=== PATIENT | female | born 1955 | race Caucasian/White ===

== ENCOUNTER 2025-02-18 13:31 | Outpatient (AMB) | payer MEDICARE, OTHER, SELFPAY ==
--- OUTSIDE RECORDS SUMMARY | 2025-02-18 15:57 | XMS_ITS ---
Author Name [facility] Organization Unknown Care Team Organization Name Specialty Phone Email Start Date End Da te [facility] ACO 01/14/2025 [facility] Akin Aponte Primary Care 02/01/20232023 [facility] Yoanna Paris Primary Care 08/02/202212/26 [facility] Lesli Cristina Primary Care 04/04/2022
--- OUTSIDE RECORDS SUMMARY | 2025-02-18 15:57 | XMS_ITS | Clinical Summary ---
Author Organization [facility] Address [address] [place] [address] Care Team Providers Care Internal Medicine Physician Assistant Name Role Phone Lesli Cristina Primary Care Provider Medications Medication Sig Dispensed Refills Start Date End Date Status alendronate (FOSAMAX) tablet 70 mg TAKE 1 TABLET BY MOUTH EVERY 7 DAYS FOR 360 DAYS. 0 01/20/2021 Active amLODIPine (NORVASC) tablet 5 mg Take 5 mg by mouth 2 (two) times a day. 0 02/04/2021 Active furosemide (LASIX) 20 MG tablet TAKE 1 TABLET BY MOUTH DAILY FOR 4 DAYS. 0 01/14/2021 Active levothyroxine (SYNTHROID) tablet 75 mcg Take 75 mcg by mouth daily. 0 02/09/2021 Active losartan (COZAAR) tablet 50 mg Take 50 mg by mouth 2 (two) times a day. 0 02/15/2021 Active Active Problems No known active problems Social History Tobacco Use Types Packs/Day Years Used Date Smoking Tobacco: Former Smokeless Tobacco: Never Alcohol Use Standard Drinks/Week Comments Yes 0 (1 standard drink = 0.6 oz pur e alcohol) Social Sex and Gender Information Value Date Recorded Sex Assigned at Not on file Gender Identity Not on file Sexual Orientation Not on file Last Filed Vital Signs Vital Sign Reading Time Taken Comments Blood Pressure 148/63 02/28/2021 2:58 PM EDT Pulse 77 02/28/2021 2:58 PM EDT Temperature 36.4 C (97.6 F) 02/28/2021 2:58 PM EDT Respiratory Rate - - Oxygen Saturation 98% 02/28/2021 2:58 PM EDT Inhaled Oxygen Concentration - - Weight 113.4 kg (250 lb) 02/28/2021 2:58 PM EDT Height 172.7 cm (5' 8 ) 02/28/2021 2:58 PM EDT Body Mass Index 38.01 02/28/2021 2:58 PM EDT Plan of Treatment Health Maintenance Due Date Last Done Comments Hepatitis C Screening 1954 COVID-19 Vaccine (#1) 1954 Depression Screening 1966 Preventative Health Evaluation 1972 DTap / Tdap / Td (1 - Tdap) 1973 Colon Cancer Screening (Colonoscopy) 1999 Breast Cancer Screening (Mammogram) 2004 Shingrix-Zoster Vaccine (1 of 2) 2004 Fall Risk Assessment 2019 Osteoporosis Screening (DEXA Scan) 2019 Pneumococcal Vaccine (1 of 1 - PCV) 2019 Influenza Vaccine (#1) 2025 RSV Adult > 60+ Yrs or Pregn ant (1 - 1-dose 75+ series) 2029 Hepatitis B Vaccines Aged Out No long er eligible based on patient's age to complete this topic RSV Ped < 20 months Aged Out No longe r eligible based on patient's age to complete this topic Care Teams Internal Medicine Physician Assistant Relationship Specialty Start Date End Date IbethYvonne cunninghamcheryl Mcguire [address] [place] [address] PCP - General Internal Medicine 02/09/21
== END 2025-02-18 13:32 | disposition home or self-care (01) ==
PROVIDERS: PCP Internal Medicine; Visit Provider Registered Nurse Emergency
DX: J30.89 Other allergic rhinitis (principal)
CPT/HCPCS: 95117; 95165

== ENCOUNTER 2025-03-30 16:00 | Outpatient (AMB) | payer MEDICARE, OTHER, SELFPAY ==
--- OUTSIDE RECORDS SUMMARY | 2025-03-30 17:04 | XMS_ITS | Data Portability ---
Author Organization [place] - Karl Ivory Denadya [facility], [facility] Address [address] [place] [address] Assessment No assessment recorded. Plan of Treatment Reminders Order Date Submit Date Provider Last Modified By Organization Details Last Modified Time Details Appointments RECHECK 15 2025 09:45A M Alfonso Valenzuela PA-C Not available Not available Not available Lab None recorded . Referral None recorded . Procedures None recorded . Surgeries None recorded . Imaging XR, hip + pelvis, unilater al, 2 or 3 view - rm 208. 2V annual RTHR AB 2023 024 [facility] [facility], [address], [place], [address], 01/19/2024 09:09:42 Medication Orders None recorded . Patient TargetsNo targets recorded. Patient InstructionsNo instructions recorded. Reason for Referral None Reported. Results Created Date Observation Date Name Description Value Unit Range Abnormal Flag Note LastModifiedBy Organization Detail LastModifiedTime 01/18/2001/18/2024 XR, hip + pelvi s, unila teral , 2 or 3 view http:/ [email or web address] ?Encry pted=s hAaTro YD8dLq bEUv6g %2BXZw aYqtaq 0bqfl% 2Fg9IQ a4ajBk vP9nXo QUaueC m3YtLR FvZlgJ JJ8mAn HZtai3 1w2912 AC0Kra HWMVKr eUC8mr 84%3D INTERFACE [facility] [address], [place], [address], 01/18/2024 08:56:56 01/18/20 24 01/18/2024 XR, hip + pelvi s, unila teral , 2 or 3 view http:/ [email or web address] ?Encry pted=s hAaTro YD8dLq bEUv6g %2BXZw aYqtaq 0bqfl% 2Fg9IQ a4ajBk vP9nXo QUaueC m3YtLR FvZlgJ JJ8mAn HZtai3 7v1367 AC0Kra HWMVKr eUC8mr 84%3D INTERFACE [facility] [address], [place], [address], 01/18/2024 08:56:57 01/26/20 24 09/03/2020 imagi ng/di agnos tic resul t No observ ation record ed. [email or web address] Not Available 12/28 04:30:52 Result Notes Documentation Provider Name and Address Organization Details Recorded Time Xr, Hip + Pelvis, Unilateral, 2 Or 3 View : [email or web address]? Encrypted=ttEqRgfCU3qWqpK Uv6g%5YUYlkDkmva2nlis%2Fg 3FLu3nfPnoG3oMpZTislTm5Rg IQXdScfLLP4zYdHJeyb72s624 3RF5OlzVRYOSjbSU9vt17%3D Not Available [facility] 01/18/2024 08:5 6:57 Xr, Hip + Pelvis, Unilateral, 2 Or 3 View : [email or web address] Encrypted=cjKqPwaYG9tNwrO Uv6g%3YFFfmOfygb9bkcr%2Fg 8IHb6cbQeyZ5eQkBNrvcVq0Ms ZNHgFalDKY4eUoVOpzk02n887 1NY3MegDJRUIcgTW3im81%3D Not Available [facility] 01/18/2024 08:5 6:58 Problems Name Problem SNOMED Code Status Onset Date Resolution Date Notes Provider Name and Address Organization Details Recorded Time Tear of medial meniscus of knee 245064112 Active 2015 Problem Code: S83.231A ; Problem Code Type: ICD-10; Status: 'A'; Not Available [facility] 4 12:12:25 Problem Notes None recorded. Procedures Surgical History Date Name Laterality Status Provider Name and Address Organization Details Recorded Time 5 Sports Shoulder 4&1 completed Alfonso Valenzuela PA-C [address], [place], [address], [facility] 11/19/2024 12:14:29 5 Knee Kenalog 40 1cc Injection, Bilateral completed Alfonso Valenzuela PA-C [address], [place], [address], [facility] 11/19/2024 12:14:35 5 Shoulder Kenalog 2cc Injection, Bilateral completed Alfonso Valenzuela PA-C [address], [place], [address], [facility] 08/04/2024 12:34:58 4 Other completed ALYSSA DENNISE [facility] 11/19/2024 08:52:10 4 Other completed ALYSSA DENNISE [facility] 11/19/2024 08:52:10 3 Hip Surgery completed ALYSSA GASTON [facility] 11/19/2024 08:52:10 6 Knee Surgery completed ALYSSABRY RASCONIERJennifer [facility] 11/19/2024 08:52:10 Spine Surgery completed ALYSSABRY RASCONIERJennifer [facility] 11/19/2024 08:52:10 Knee Surgery completed ALYSSA MARILIN [facility] 11/19/2024 08:52:10 Shoulder Surgery completed ALYSSABRY GASTON [facility] 11/19/2024 08:52:10 Ankle/Foot Surgery completed ALYSSABRY GASTON [facility] 11/19/2024 08:52:10 Imaging Results None recorded. Procedure Notes None recorded. Medical Equipment None Reported. Allergies Allergen ID Allergen Name Allergen Category Reaction Reaction Severity Criticality Documentation Date Start Date Code Code System Note Provider Name and Address Organization Details Recorded Time 557035 fluoxetin e medicatio n Not available Not available Not available 08/04/2024 4493 RxNorm ALYSSA GASTON elvia [facility] 5 10:11:14 02188 Augmentin medicatio n Not available Not available Not available 07/30/20232013 30950 2 RxNorm Aller gyRea ction : 'Skin React ion'; Not Available [facility] 12:08:53 Medications Name Sig Start Date Stop Date Status Note LastModified by Organization Details LastModified Time losartan 50 mg tablet TAKE 1 TABLET BY MOUTH TWICE A DAY active Not Available Not Available No t Available amoxicillin 500 mg capsule TAKE 4 ONE HOUR BEFORE APPOINTME NT active Not Available Not Available No t Available gabapentin 600 mg tablet TAKE 1 TABLET BY MOUTH EVERYDAY AT BEDTIME active Not Available Not Available No t Available doxycycline hyclate 100 mg capsule TAKE 1 CAPSULE BY MOUTH TWICE A DAY FOR 7 DAYS active Not Available Not Available No t Available azithromyci n 250 mg tablet TAKE 2 TABLETS BY MOUTH TODAY, THEN TAKE 1 TABLET DAILY FOR 4 DAYS DIRECTED 07/29 completed Not Available Not Available Not Available ibuprofen 800 mg tablet TAKE 1 TABLET BY MOUTH EVERY 8 HOURS NEEDED FOR PAIN active Not Available Not Available No t Available prednisone 20 mg tablet TAKE 2 TABLETS (40 MG TOTAL) BY MOUTH ONE TIME EACH DAY FOR 5 DAYS. active Not Available Not Available No t Available alendronate 70 mg tablet TAKE 1 TABLET BY MOUTH ONE TIME PER WEEK active Not Available Not Available No t Available amlodipine 5 mg tablet TAKE 1 TABLET BY MOUTH TWICE A DAY active Not Available Not Available No t Available levothyroxi ne 75 mcg tablet TAKE 1 TABLET BY MOUTH EVERY DAY active Not Available Not Available No t Available ketorolac 0.5 % eye drops INSTILL 1 DROP IN OPERATIVE EYE TWICE A DAY. START 2 DAYS PRIOR TO SURGERY 07/29 completed Not Available Not Available Not Available benzonatate 100 mg capsule TAKE 1 CAPSULE BY MOUTH 3 TIMES A DAY IF NEEDED FOR COUGH. DO NOT CRUSH OR CHEW. 07/29 completed Not Available Not Available Not Available pseudoephed rine-guaife nesin ER 80-700 mg tablet,exte nded release DO NOT DRIVE WHILE TAKING THIS MEDICATIO N 09/14 completed Statu s: 'Disc ontin ued'; Not Available Not Available Not Available prednisone 50 mg tablet TAKE 1 TABLET BY MOUTH EVERY DAY FOR 5 DAYS 07/29 completed Not Available Not Available Not Available albuterol sulfate HFA 90 mcg/actuati on aerosol inhaler TAKE 1 PUFF EVERY 4 TO 6 HOURS FOR SHORTNESS OF BREATH OR WHEEZING active Not Available Not Available No t Available naproxen 500 mg tablet TAKE 1 TABLET BY MOUTH 2 TIMES DAILY (WITH MEALS) FOR 10 DAYS. active Not Available Not Available No t Available acetaminoph en Acetamino phen 325MG Capsule 2021 active Statu s: 'Curr ent'; Not Available Not Available Not Available oxycodone HCl-oxycodo ne-ASA 1 every 4 - 6 hours as needed DO NOT DRIVE WHILE ON THIS MEDICATIO N 09/14 completed Statu s: 'Disc ontin ued'; Not Available Not Available Not Available Vitals Date Recorded Body height Body mass index (BMI) Body weight Provider Name and Address Organization Details Last Updated DateTime 08/04/2024 170.18 cm 39.9 kg/m2 633031.05 g ALYSSA GASTON [facility] 08/04/2024 10:10:47 Date Recorded Body height Provider Name an d Address Organization Details Last Updated DateTime 11/19/2024 170.18 cm ALYSSA GASTON [facility] 11/19/2024 08:51:46 Date Recorded Body height Provider Name an d Address Organization Details Last Updated DateTime 01/18/2024 170.18 cm ALYSSA GASTON [facility] 01/18/2024 08:49:42 Social History Question Answer Notes LastModified by Organizat ion Details LastModified Time Tobacco Smoking Status Former Smoker ALYSSA gan [facility] 11/19/2024 08:52:04 When Did You Quit Smoking? 16+yearssinc elastcigaret te Information not available 11/19/2024 What Is Your Relationship Status? Information not available 11/19/2024 How Many Years Have You Smoked Tobacco? 8 Information not available 11/19/2024 Sex: Unknown Functional Status Question Answer Note LastModified by Organizat ion Details LastModified Time How many times per week do you consume alcohol? Less than 1 time per week Information not available 11/19/2024 Do you use any illicit or recreational drugs? No Information not available 11/19/2024 Do you or have you ever used any other forms of tobacco or nicotine? No Information not available 11/19/2024 Mental Status None recorded. Family History Nothing Reported. Medical History Condition Response Anxiety/Depression Y Arthritis Y Allergies/Hayfever Y Thyroid Problems Y Peripheral Vascular Disease Y Hypertension Y Osteoporosis Y Gynecological HistoryNo gynecological history recorded. Obstetrics History GPAL:G 0 P 0 0 0 0 Past Encounters Encounter ID Performer Location Encounter Start Date Encounter Closed Date Diagnosis/Indication Diagnosis SNOMED-CT Code Diagnosis ICD10 Code Diagnosis IMO Codes Diagnosis Note [id number] MANOJ Johnston [address] [place] [address] 01/18/2024 08:44:38 02/14/2024 14:28:41 History of total replacement of right hip joint 4024335920 20694 Z96.813 [id number] MANOJ Swanson [address] [place] [address] 08/04/2024 10:05:11 08/18/2024 14:14:23 Pain of right shoulder joint 9924334346 7070066 M25.511 991465 Pain of le ft shoulder joint 5868111123 2442829 M25.512 [id number] [place] [address] 11/19/2024 08:50:28 11/27/2024 12:27:23 Osteoarthritis of left knee joint 1173428525 66987 M17.12 0012131 Osteoarthr itis of right knee joint 9258463733 13125 M17.11 5296724 Pain of ri ght shoulder joint 5734249236 9849555 M25.511 135067 Health Concerns Section Related Observation LastModified by Organization Detai ls LastModified Time None Recorded Concern Status LastModified by Organization Details LastModified Time None Recorded Advance Directives Directive None Recorded Payers Insurance Date Sequence Insurance Name Policy Number Policy Flores Covered Member ID Flores Member ID Guarantor Name 11/27/2024 2 [facility] IN[facility] (MEDICARE SUPPLEMENT) [id number] 2 José Miguel Jennifer Kip [id number] Bea Shin 03/18/2025 1 MEDICARE B-[place]: [facility] [employer] Beaynes Shin [id number] 1 Bea Shin Notes Date Note Type Note Provider Name and Address Organization Details Recorded Time 01/18/2024 text/html I am seeing the patient today under the supervision of Dr. Oglesby who was available but who did not see the patient. HPI: Patient comes in for evaluation of right hip There are status post left total hip arthroplasty [place] [address] Newman. Patient doing very well in this regard. Has no pain or complaints about the hip. Has gone back to activities of daily living without difficulty. Has been compliant with prophylactic dental antibiotic use. Very happy with the results so far. Past family, medical, social history and review of systems has been reviewed, updated and is located in the patient s chart. Examination:The patient is well appearing and in no apparent distress. Alert and oriented x3. Gait is symmetric. Vital signs per intake sheet.Examination of the right hip has no effusion erythema or warmth. No point tenderness. Supple range of motion without pain. Negative Stinchfield and negative impingement negative straight leg raise. Calf soft and nontender. 5/5 strength with hip flexion and extension. X-rays ordered, obtained and reviewed at [facility] 2 viewes of the right hip demonstrate a total joint arthroplasty with good interfaces and alignment. No evidence of any lysis or loosening. No acute fractures appreciated. Impression: Status post right total hip arthroplasty doing well Plan: Nature of diagnosis discussed with the patient today. Prophylactic dental antibiotic use. Any increased pain and discomfort about the hip should contact our office immediately. Otherwise can follow-up every 1-2 years for repeat radiographs, happily see her back sooner as noted above. José Miguel Esparza PA-C [address], [place], [address], [facility] 01/18/2024 09:20:28 08/04/2024 text/html I am seeing the patient today under the supervision of Dr. Damon who was available but who did not see the patient. Reason For VisitPatient comes to the office with know rotator cuff tendonitis. The patient has done well with conservative management for their bilateral shoulder pain. Has had increasing discomfort over the past several weeks without injury. Pain is generalized about the shoulder. Off and on discomfort is noted at night. Past Medical/Surgical HistoryCurrent medications per intake sheet. Physical Findings The patient is well appearing, in no apparent distress, alert and oriented to person, place and time. Gait is symmetric. No significant swelling, warmth or erythema about either shoulder. There is mild tenderness to palpation about the shoulder. Active range of motion of the shoulder is near full with mild to moderate pain through mid range manipulations. 4/5 strength of the shoulder, but the rotator cuff seems to fire well. Good stability of the shoulder. Peripheral, vascular, lymphatic examination, skin, neurologic coordination, reflexes, sensation are within normal limits. AssessmentRotator cuff tendonitis of the bilateral shoulder. planThe patient has done well with conservative management in regards to the right shoulder. Continued conservative management recommended. Moderating activities with the upper extremity recommended also. Injection was performed into the subacromial space. Injected 80mg of Kenalog and 8cc of 1/4% Marcaine under sterile conditions into the bilateral shoulder subacromial space. Patient tolerated the injection well. Moderating activities with the upper extremity recommended. The patient will follow up prn. Alfonso Valenzuela PA-C [address], [place], [address], [facility] 08/04/2024 12:35:25 11/19/2024 text/html I am seeing the patient today under the supervision of Dr. Damon who was available but who did not see the patient. Reason For Visit Patient comes to the office with know rotator cuff tendonitis. The patient has done well with conservative management for their right shoulder pain. Has had increasing discomfort over the past several weeks without injury. Pain is generalized about the shoulder. Off and on discomfort is noted at night. Past Medical/Surgical History Current medications per intake sheet. Physical Findings The patient is well appearing, in no apparent distress, alert and oriented to person, place and time. Gait is symmetric. No significant swelling, warmth or erythema about either shoulder. There is mild tenderness to palpation about the shoulder. Active range of motion of the shoulder is near full with mild to moderate pain through mid range manipulations. 4/5 strength of the shoulder, but the rotator cuff seems to fire well. Good stability of the shoulder. Peripheral, vascular, lymphatic examination, skin, neurologic coordination, reflexes, sensation are within normal limits. Assessment Rotator cuff tendonitis of the right shoulder. plan The patient has done well with conservative management in regards to the shoulder. Continued conservative management recommended. Moderating activities with the upper extremity recommended also. Injection was performed into the subacromial space. Injected 80mg of Kenalog and 8cc of 1/4% Marcaine under sterile conditions into the left shoulder subacromial space. Patient tolerated the injection well. Moderating activities with the upper extremity recommended. The patient will follow up prn. Problem 2 Chief Complaint The patient presents today for recheck of bilateral knee osteoarthritis. Is known to have knee arthritis treated conservatively to this point with 3 months relief of symptoms. Presents today for recheck secondary to increased knee pain. History of Present Illness Allergy list reviewed Medication list reviewed Past Medical/Surgical History Reviewed today, otherwise unchanged per intake sheet. Physical Findings General Appearance: Well developed. In no acute distress. Musculoskeletal System: Knee: General/bilateral: No laxity of the knee. Right Knee: Medial aspect was tender on palpation. No erythema. No warmth. Left Knee: Medial aspect was tender on palpation. No erythema. No warmth. Musculoskeletal Scales: General/bilateral: Mild effusion noted. Neurological: Oriented to time, place, and person. Gait And Stance: Normal. Psychiatric: Mood was appropriate to the affect. Left knee 0-120 degrees of flexion with discomfort. Right knee 0-120 degrees of flexion with discomfort. Assessment Osteoarthritis of knee -bilateral knees Plan More than 50% of todays visit was spent on direct patient counseling regarding their knee condition and treatment options both operative with knee arthroplasty and non-operative, including oral medications and injection therapy. After discussion, my clinical decision was to go forth with an intra-articular cortisone injection. After explaining risks and benefits, under meticulous aseptic technique, each knee was injected with, 1cc of Kenalog 40mgs and 4 cc of Marcaine 1/4%. They tolerated the procedures well. Post injection precautions reviewed. Follow up with us in 3 months for further discussion of total knee replacement surgery versus continued conservative treatment. Alfonso Valenzuela PA-C [address] [facility] [address], [place], [address], [place] [facility] 11/19/2024 12:15:07 OBGyn Episode No OBEpisode recorded.
--- OUTSIDE RECORDS SUMMARY | 2025-03-30 17:04 | XMS_ITS | Clinical Summary ---
Author Organization [facility] Address [address] [place] [address] Care Team Providers Care Logistics Program Manager Name Role Phone Lesli Cristina Primary Care [...] age to complete this topic Care Teams Logistics Program Manager Relationship Specialty Start Date End Date IbethYvonne cunninghamcheryl Mcguire [address] [place] [address] PCP - General Internal Medicine 02/09/21
--- OUTSIDE RECORDS SUMMARY | 2025-03-30 17:04 | XMS_ITS | Clinical Summary ---
Author Organization [facility] [address] [facility] Building Address [address] [place] [address] Phone Care Team Providers Care Director Of Student Financial Services Name Role Phone Akin Aponte MD Primary Care Provider [phone] Allergies Active Allergy Reactions Criticality Noted Date Comments Amoxicillin-Pot Clavulanate 03/19/20 07 gi distress Fluoxetine Hcl High 09/05/2013 Severe back pain Medications ibuprofen (ADVIL,MOTRIN) 800 mg tablet Take 1 tablet (800 mg total) by mouth every 8 (eight) hours if needed. 09/25/19 24 Active fluticasone propionate (FLONASE) 50 mcg/actuation nasal spray TAKE 1 SPRAY IN EACH NOSTRIL TWICE A DAY 08/01/19 23 Active metaxalone (SKELAXIN) 800 mg tablet Take 1 tablet (800 mg total) by mouth 3 (three) times a day if needed. 07/17/19 23 Active LORazepam (ATIVAN) 1 mg tablet Take 0.5-1 Tablets by mouth 2 times daily as needed for Anxiety. 05/15/20 22 Active albuterol HFA (PROAIR HFA ; PROVENTIL HFA ; VENTOLIN HFA) 90 mcg/actuation inhaler Inhale 2 Puffs into the lungs 4 times daily as needed for Cough or Wheezing. 05/14/20 20 Active levocetirizine (XYZAL) 5 mg tablet Take 5 mg by mouth every evening. Active acetaminophen (TYLENOL) 500 mg tablet Take 1,000 mg by mouth every 8 hours as needed. Active cholecalciferol (VITAMIN D-3) 125 mcg (5,000 unit) capsule Take 5,000 Units by mouth daily. Active 5-hydroxytryptopha n, 5-HTP, 100 mg capsule Take 1 Cap by mouth daily. Active calcium carbonate-vitamin D3 600 mg-5 mcg (200 unit) per tablet 2 TABLET DAILY 07/13/19 09 Active multivitamin (MULTIPLE VITAMINS ORAL) 1 Q.D. Active amLODIPine (NORVASC) 5 mg tabletIndications: Essential (primary) hypertension Take 1 tablet (5 mg total) by mouth 2 (two) times a day. 180 tablet 1 02/03/20 25 Active alendronate (FOSAMAX) 70 mg tablet TAKE 1 TABLET BY MOUTH ONE TIME PER WEEK 12 tablet 1 02/28/20 25 Active losartan (COZAAR) 50 mg tabletIndications: Essential (primary) hypertension TAKE 1 TABLET BY MOUTH TWICE A DAY 180 tablet 1 03/05/20 25 Active levothyroxine (SYNTHROID, LEVOTHROID) 75 mcg tabletIndications: Other specified hypothyroidism TAKE 1 TABLET (75 MCG TOTAL) BY MOUTH ONE TIME EACH DAY. 90 tablet 1 03/23/20 25 Active losartan (COZAAR) 50 mg tabletIndications: Essential (primary) hypertension TAKE 1 TABLET BY MOUTH TWICE A DAY 180 tablet 1 09/09/19 25 025 Discontinued levothyroxine (SYNTHROID, LEVOTHROID) 75 mcg tabletIndications: Other specified hypothyroidism Take 1 tablet (75 mcg total) by mouth 1 (one) time each day. 90 tablet 12/24/19 25 025 Discontinued Active Problems Problem Noted Date Diagnosed Date Acquired hypothyroidism 05/02/2024 Plantar fasciitis of right foot 01/27/2022 Osteoporosis 12/23/2020 Overview (03/24/2024): Tscore -2.8 Popliteal cyst, left 11/26/2020 Environmental and seasonal allergies 05/14/2020 Herpetic lesion 08/29/2018 Subclinical hypothyroidism 01/04/2017 Metatarsal fracture 05/26/2015 Overview (03/24/2024): 5th left, 12/15 RAD (reactive airway disease) 02/15/2015 Obstructive sleep apnea 11/19/2014 Hypertension 09/29/2014 GERD (gastroesophageal reflux disease) 3 Adjustment disorder with mixed anxiety and depre ssed mood 08/28/2012 Carpal tunnel syndrome 02/22/2011 Overview (03/24/2024): Bilateral, mild by EMG 02/05 Hypercholesteremia 07/13/2008 Chronic low back pain 08/18/2007 Overview (03/24/2024): L4-5 microdiskectomy 2002 Leiomyoma of uterus 08/06/2005 Obesity 08/06/2005 Immunizations Immunization Administration Dates Next Due COVID-19 (Pfizer/Comirnaty) 12yo and older 02/05/2025 H1N1 Inj Preservative Free 04/16/2009 Influenza trivalent, 0.5mL ( Fluad) 65yo and older 02/27/2025,03/06/2023,03/01/2021,03/05 Influenza trivalent, 0.5mL, preservative free (Fluarix; FluLaval; Fluzone) ages 6mo and older (Afluria) 3 years and older 02/22/2024,03/18/2019,03/08/2018,03/01,03/27/2016,02/15/2015,02/27/2014 ,03/26/2013,02/13/2012,05/05/2011,11/2010,05/20/2009 Influenza, Unspecified 07/31/2022 Moderna SARS-CoV-2 COVID-19, mRNA, LNP-S, preservative free 02/22/2024,03/06/2023,09/24/2021,03/24,07/15/2020,06/11/2020 Mumps 10/28/2009 Pfizer (ages 12 & older) Biv alent, COVID-19 02/17/2022 Pneumococcal conjugate 13 va lent (Prevnar 13, PCV13) 2mo and older 01/21/2020 Pneumococcal polysaccharide 23 valent (Pneumovax 23) 2yo and older 01/27/2022,02/15/2015 Respiratory syncytial virus (RSV), unspecified 04/10/2023 Td Tetanus diptheria (Tdvax) 7yo and older 01/27/2022,12/31/2005 Tdap Tetanus diptheria acell ular pertussis (Boostrix; Adacel) 7yo and older 11/03/2010 Zoster Live 02/03/2011 Zoster recombinant (Shingrix ) 19yo and older 03/02/2020,03/24/2019 Surgical History Surgery Date Site/Laterality Comments OTHER SURGICAL HISTORY PROCEDURE: [place] HEMORRHOIDOPEXY STAPLING OTHER SURGICAL HISTORY 05/2017 PROCEDURE: MAMMOGRAM COLONOSCOPY 02/2005 PROCEDURE: HISTORICAL COLONOSCOPY; COMMENT: diverticulosis OTHER SURGICAL HISTORY 11/2007 PROCEDURE: ENDOMETRIAL BIOPSY/PIPELLE SPCMN PATHOLOGY TUBAL LIGATION PROCEDURE: HISTORICAL TUBAL LIGATION OTHER SURGICAL HISTORY PROCEDURE: DECOMPRESS DISC RF LUMBAR; COMMENT: L3-4; L4-5 COLONOSCOPY 2014 PROCEDURE: HISTORICAL COLONOSCOPY; COMMENT: diverticulosis KNEE ARTHROSCOPY PROCEDURE: [place] ARTHROSCOPY KNEE DIAGNOSTIC W/WO SYNOVIAL BX SPX OTHER SURGICAL HISTORY 2013 PROCEDURE: [place] SURGICAL ARTHROSCOPY SHOULDER LMTD DBRDMT 05/29 FOOT SURGERY PROCEDURE: HISTORICAL FOOT SURGERY; COMMENT: aden pearson, skin graft 02/11-06/14 HIP ARTHROPLASTY 01/03/2023 Right PROCEDURE: HISTORICAL HIP REPLACEMENT Medical History Medical History Date Comments Obesity, unspecified 08/06/2005 DX:Obesity, unspecified Leiomyoma of uterus, unspecified 08/06/2005 DX:Leiomyoma of uterus, unspecified Unspecified sinusitis (chronic) 08/06/2005 DX:Unspecified sinusitis (chronic) Osteopenia 12/26/2007 DX:Osteopenia; C OMMENT: T-1.1 spine, 0.0 hip 12/02 Hypercholesteremia 07/13/2008 DX:Hyperchole steremia Carpal tunnel syndrome 02/22/2011 DX:Carpal tunnel syndrome GERD (gastroesophageal reflux disease) 3 DX:GERD (gastroesophageal reflux disease) Hypertension 09/29/2014 DX:Hypertension Hypertension 09/29/2014 DX:Hypertension Metatarsal fracture 05/26/2015 DX:Metatarsa l fracture; COMMENT: 5th left, 05/11 Subclinical hypothyroidism 01/04/2017 DX:Chaidez bclinical hypothyroidism Abscess of foot without toes, left 02/12/2017 DX:Abscess of foot without toes, left Osteoporosis 12/23/2020 DX:Osteoporosis; COMMENT: Tscore -2.8 Social History Tobacco Use Types Packs/Day Years Used Date Smoking Tobacco: Former Cigarettes 0.8 8.2 1 - 05/28/1983 Smokeless Tobacco: Never Tobacco Cessation:Counseling Given: Not Answered Alcohol Use Standard Drinks/Week Comments Yes 0 (1 standard drink = 0.6 oz pur e alcohol) Housing Instability Answer Date Recorde d Are you worried that in the next 2 months you may not have stable housing? No 05/01/2024 Food Access & Nutrition Answer Date Rec orded Do you have access to a vari ety of food including fruits and vegetables? Yes 05/01/2024 Access to Healthcare Answer Date Record ed Within the last 3 months, ho w many times did you visit the emergency department for your medical care? 0 05/01/2024 Health Literacy Answer Date Recorded How often do you need to hav e someone help you when you read instructions, pamphlets, or other written material from your doctor or pharmacy? Never 05/01/2024 Caregiver: How often do you need to have someone help you when you read instructions, pamphlets, or other written material from your doctor or pharmacy? Not on file 05/01/2024 Financial Risk Answer Date Recorded How hard is it for you to pa y for the very basics like food, housing, medical care, and air conditioning / heating? Not very hard 05/01/2024 Transportation Answer Date Recorded Has the lack of transportati on kept you from meetings, work, or from getting things needed for daily living? No Has the lack of transportati on kept you from medical appointments or from getting medications? No 05/01/2024 Social Isolation Answer Date Recorded How often do you feel lonely or isolated from th ose around you? Never 05/01/2024 Food Risk Answer Date Recorded Within the past 12 months we worried whether our food would run out before we got money to buy more. Never true 05/01/2024 Within the past 12 months th e food we bought just didn't last and we didn't have money to get more. Never true 05/01/2024 Dependent Care Answer Date Recorded Do you need help finding or paying for care for your loved ones. For example, child care group leader or elderly care for an older adult? No 05/01/2024 Education Answer Date Recorded Do you think completing more education or training, like finishing a GED, going to college, or learning a trade, would be helpful for you? N/A 05/01/2024 Employment and Income Answer Date Recor ded During the last four weeks, have you been actively looking for work? No 05/01/2024 Living Situation Answer Date Recorded What is your living situation? Unrecognized valu e 05/01/2024 Comments No Sex and Gender Information Value Date Recorded Sex Assigned at Not on file Legal Sex Female 9:35 AM EST Gender Identity Not on file Sexual Orientation Not on file Obstetrics History Para Term AB IAB SAB Ectopic Multiple Livin g Live Births 2 2 2 2 Date Outcome GA Total Labor Labor//3rd Weight Sex Type Anes PTL Luna A1 A5 Name Clin Term Term Last Filed Vital Signs Vital Sign Reading Time Taken Comments Blood Pressure 125/85 12/23/2024 9:54 AM EDT Pulse 75 12/23/2024 9:36 AM EDT Temperature 36.8 C (98.2 F) 09/18/2024 1:11 PM EDT Respiratory Rate - - Oxygen Saturation 96% 09/18/2024 1:11 PM EDT Inhaled Oxygen Concentration - - Weight 118 kg (260 lb) 05/02/2024 11:36 AM EST p t refused Height 171.5 cm (5' 7.5 ) 12/23/2024 9:36 AM EDT Body Mass Index 40.72 05/02/2024 11:36 AM EST Plan of Treatment Upcoming Encounters Date Type Department Care Team (Late st Contact Info) Description 06/24/2025 9:00 AM EST Office Visit [facility] [address] [place] [address] Akin Aponte MD [address] [place] [address] Health Maintenance Due Date Last Done Comments RSV Immunization Adult Patients (1 - Risk 50-74 years 1-dose series) 2004 04/10/2023 Medicare Annual Wellness Visit 05/06/2022 Colorectal Cancer Screening: Colonoscopy 03/29/2025 03/29/2015 Social Influencers of Health Screening 05/01/2025 05/01/2024 COVID-19 Vaccine ( season) 2025 02/05/2025, 02/22/2024, 03/06/2023, Additional history exists Falls Risk Assessment 12/23/2025 12/23/2024, 024 Hypertension/CHF/CAD Annual BMP Blood Test 12/23/2025 12/23/2024, 05/02/2024 Breast Cancer Screening 09/29/2026 09/30/19, 09/24/2023, 09/24/2023, Additional history exists Cholesterol Screening (Lipid Panel) 12/23/2029 12/23/2024, 05/02/2024 DTaP,Tdap,and Td Vaccines (4 - Td or Tdap) 01/28/2032 01/27/2022, 11/03/2010, 12/31/2005 Osteoporosis Screening (Bone Density Screening) 04/16/2033 04/16/2023, 12/23/2020 Hepatitis C Screening Completed 04/04/2013 Zoster Vaccines Completed 03/02/2020, 02/26, 02/03/2011 Pneumococcal Vaccine: 50+ Years Completed 01/27/2022, 01/21/2020, 02/15/2015 RSV Immunization Patients Under 20 months Aged Out 04/10/2023 No longer eligible based on patient's age to complete this topic Depression Screening Completed 12/21/2024 Influenza Vaccine Completed 02/27/2025, , 03/06/2023, Additional history exists HIB Vaccines Aged Out No longer eligi ble based on patient's age to complete this topic HPV Vaccines Aged Out No longer eligi ble based on patient's age to complete this topic Hepatitis A Vaccines Aged Out No long er eligible based on patient's age to complete this topic Hepatitis B Vaccines Aged Out No long er eligible based on patient's age to complete this topic IPV Vaccines Aged Out No longer eligi ble based on patient's age to complete this topic MMR Vaccines Aged Out No longer eligi ble based on patient's age to complete this topic Meningococcal ACWY Vaccine Aged Out N o longer eligible based on patient's age to complete this topic Meningococcal B Vaccine Aged Out No l onger eligible based on patient's age to complete this topic Varicella Vaccines Aged Out No longer eligible based on patient's age to complete this topic Procedures Procedure Name Priority Date/Time Associated Diagnosis Comments COMPREHENSIVE METABOLIC PANEL Routine 12/23/2024 10:03 AM EDT Primary hypertension Hypercholesteremia LIPID PANEL WITH REFLEX TO DIRECT LDL Routine 12/23/2024 10:03 AM EDT Hypercholesteremia MG MAMMO DIGITAL SCREENING W MANE BILAT Routine 09/29/2024 2:51 PM EDT Encounter for screening mammogram for breast cancer DXA BONE DENSITY STUDY 1+ SITS AXIAL SKEL Routine 04/16/2023 3:33 PM EST Age-related osteoporosis without current pathological fracture COLONOSCOPY Routine 03/29/2015 HEPATITIS C SCREENING Routine 04/04/2013 from Last 3 Months or Most Recently Relevant to Health Maintenance Results * (ABNORMAL) Lipid panel with reflex to direct LDL (12/23/2024 10:03 AM EDT) Cholesterol 188 0 - 200 mg/dL LAB CHEMISTRY METHOD 12/23/2024 4:01 PM [facility] Triglycerides 86 0 - 150 mg/dL LAB CHEMISTRY METHOD 12/23/2024 4:01 PM [facility] HDL 55 >=40 mg/dL LAB CHEMISTRY METHOD 12/23/2024 4:01 PM [facility] LDL Calculated 116(H) 0 - 100 mg/dL LAB CHEMISTRY METHOD 12/23/2024 4:01 PM [facility] VLDL Cholesterol Michelet 17.2 mg/dL LAB CHEMISTRY METHOD 12/23/2024 4:01 PM [facility] Non HDL Chol. (LDL+VLDL) 133 <145 mg/dL LAB CHEMISTRY METHOD 12/23/2024 4:01 PM [facility] Chol/HDL Ratio 3.4 0.0 - 4.4 LAB CHEMISTRY METHOD 12/23/2024 4:01 PM [facility] Blood Venous blood specimen / Unknown Venipuncture / Unknown 12/23/2024 10:03 AM EDT 12/23/2024 10:03 AM EDT us Akin Aponte MD LAB BLOOD ORDERABLES Final Resu lt [facility] [address] [place] [address], [place] [phone] * Comprehensive metabolic panel (12/23/2024 10:03 AM EDT) Sodium 143 133 - 145 mmol/L LAB CHEMISTRY METHOD 12/23/2024 4:07 PM [facility] Potassium 4.5 3.5 - 5.5 mmol/L LAB CHEMISTRY METHOD 12/23/2024 4:07 PM [facility] Chloride 109 96 - 110 mmol/L LAB CHEMISTRY METHOD 12/23/2024 4:07 PM [facility] CO2 30 21 - 32 mmol/L LAB CHEMISTRY METHOD 12/23/2024 4:07 PM [facility] Anion Gap 4 3 - 11 LAB CHEMISTRY METHOD 12/23/2024 4:07 PM [facility] Glucose 90 70 - 100 mg/dL LAB CHEMISTRY METHOD 12/23/2024 4:07 PM [facility] BUN 13 5 - 25 mg/dL LAB CHEMISTRY METHOD 12/23/2024 4:07 PM [facility] Creatinine 0.89 0.50 - 1.10 mg/dL LAB CHEMISTRY METHOD 12/23/2024 4:07 PM [facility] eGFR 70 >=60 mL/min/1. 73m2 LAB CHEMISTRY METHOD 12/23/2024 4:07 PM EDT [facility] Comment:Calculation based on the Chronic Kidney Disease Epidemiology Collaboration (CKD-EPI) equation refit without adjustment for race. BUN/Creatinine Ratio 14.6 LAB CHEMISTRY METHOD 12/23/2024 4:07 PM EDT [facility] Calcium 9.4 8.5 - 10.5 mg/dL LAB CHEMISTRY METHOD 12/23/2024 4:07 PM [facility] AST (SGOT) 15 10 - 42 unit/L LAB CHEMISTRY METHOD 12/23/2024 4:07 PM [facility] ALT (SGPT) 26 10 - 60 unit/L LAB CHEMISTRY METHOD 12/23/2024 4:07 PM [facility] Alkaline Phosphatase 57 42 - 121 unit/L LAB CHEMISTRY METHOD 12/23/2024 4:07 PM [facility] Total Protein 6.2 6.0 - 8.0 g/dL LAB CHEMISTRY METHOD 12/23[facility]2024 4:[facility] Albumin 3.9 3.2 - 5.0 g/dL LAB CHEMISTRY METHOD 12/23/2024 4:07 PM [facility] Total Bilirubin 0.5 0.0 - 1.4 mg/dL LAB CHEMISTRY METHOD 12/23/2024 4:07 PM EDT [facility] Blood Venous blood specimen / Unknown Venipuncture / Unknown 12/23/2024 10:03 AM EDT 12/23/2024 10:03 AM EDT us Akin Aponte MD LAB BLOOD ORDERABLES Final Resu lt [facility] [address] [place] [address], [place] [phone] * MG Mammo Digital Screening w Mane bilat (09/29/2024 2:51 PM EDT) Anatomical Region Laterality Modality Breast Bilateral Mammography 09/30/2024 7:41 AM EDT Impressions 09/30/2024 7:49 AM EDT Benign. BI-RADS CATEGORY: 1 - NEGATIVE RECOMMENDATION: Screening bilateral mammogram is recommended in 1 year. Mammo Location: [facility], [address] [place] [address], [id number], . -------- FINAL REPORT -------- Dictated By: Neida Julien Dictated Date: 09/30/2024 07:41 ET Assigned Physician: Neida Julien Reviewed and Electronically Signed By: Neida Julien Signed Date: 09/30/2024 07:49 ET Workstation ID: [id number] Transcribed By: Self Edit Transcribed Date: 09/30/2024 07:41 ET Narrative 09/30/2024 7:49 AM EDT CLINICAL: 69 years old, Female, routine annual exam. COMPARISON: Mammograms dating back to 07/15/2020 with most recent of 09/24/2023. TECHNIQUE: Bilateral MLO and CC views were obtained digitally with 3-D mammogram (digital breast tomosynthesis). Computer-aided detection was utilized in evaluation of this exam (CAD). FINDINGS: There is no evidence of suspicious mass or architectural distortion. No worrisome calcifications are evident. There has been no significant change from prior exam(s). BREAST DENSITY: B - There are scattered areas of fibroglandular density. Procedure Note Neida Julien MD - 09/30/2024 CLINICAL: 69 years old, Female, routine annual exam. COMPARISON: Mammograms dating back to 07/15/2020 with most recent of09/24/2023. TECHNIQUE: Bilateral MLO and CC views were obtained digitally with 3-Dmammogram (digital breast tomosynthesis). Computer-aided detection wasutilized in evaluation of this exam (CAD). FINDINGS: There is no evidence of suspicious mass or architectural distortion. Noworrisome calcifications are evident. There has been no significantchange from prior exam(s). BREAST DENSITY: B - There are scattered areas of fibroglandular density. IMPRESSION: Benign. BI-RADS CATEGORY: 1 - NEGATIVE RECOMMENDATION: Screening bilateral mammogram is recommended in 1 year. Mammo Location: [facility], [address] [place] [address], [id number], . -------- FINAL REPORT -------- Dictated By: Neida Julien Dictated Date: 09/30/2024 07:41 ET Assigned Physician: Neida Julien Reviewed and Electronically Signed By: Neida Julien Signed Date: 09/30/2024 07:49 ET Workstation ID: [id number] Transcribed By: Self Edit Transcribed Date: 09/30/2024 07:41 ET us Akin Aponte MD IMG BI PROCEDURES Final Result * DXA BONE DENSITY STUDY 1+ SITS AXIAL SKEL (04/16/2023 3:33 PM EST) Anatomical Region Laterality Modality Bone Densitometr y 11/01/2022 8:56 AM EDT Narrative 04/18/2023 9:26 AM EST STUDY: DUAL ENERGY X-RAY ABSORPTIOMETRY / DXA REASON FOR EXAM: Female, 68 years old. osteoporosis TECHNIQUE: Bone Mineral Density (BMD) measurements of the lumbar spine and left hip were obtained using [employer] W (S/N [id number]). COMPARISON: None FINDINGS: L1-L4 BMD: 0.986 g/cm2 L1-L4 T score: -0.6. This corresponds to Normal bone density. Left femoral neck BMD: 0.685 g/cm2 Left femoral neck T score: -1.5. This corresponds to osteopenia. Left total hip BMD: 0.936 g/cm2 Left total hip T score: 0.0. This corresponds to Normal bone density. FRAX score: 10 year risk of major osteoporotic fracture 14%, 10 year risk of hip fracture 2.7% IMPRESSION: IMPRESSION: Osteopenia Reference Information: The T-score is the number of standard deviations above or below the standard which is normal for young adults at their peak bone mineral density. The World Health Organization (WHO) interprets the T-scores as follows: At or above -1 SD Normal bone density Between -1 and -2.5 SD Osteopenia At or below -2.5 SD Osteoporosis Procedure Note Kumar Cervantes MD - 07/03/2023 STUDY: DUAL ENERGY X-RAY ABSORPTIOMETRY / DXA REASON FOR EXAM: Female, 68 years old. osteoporosis TECHNIQUE: Bone Mineral Density (BMD) measurements of the lumbar spineand left hip were obtained using [employer] W (S/N [id number]). COMPARISON: None FINDINGS: L1-L4 BMD: 0.986 g/cm2 L1-L4 T score: -0.6. This corresponds to Normal bone density. Left femoral neck BMD: 0.685 g/cm2 Left femoral neck T score: -1.5. This corresponds to osteopenia. Left total hip BMD: 0.936 g/cm2 Left total hip T score: 0.0. This corresponds to Normal bone density. FRAX score: 10 year risk of major osteoporotic fracture 14%, 10 year riskof hip fracture 2.7% IMPRESSION: IMPRESSION: Osteopenia Reference Information: The T-score is the number of standard deviations above or below thestandard which is normal for young adults at their peak bone mineral density. The World HealthOrganization (WHO) interprets the T-scores as follows: At or above -1 SD Normal bone density Between -1 and -2.5 SD Osteopenia At or below -2.5 SD Osteoporosis Akin Aponte MD [facility] [place]ED[place] Final Result * Colonoscopy (03/29/2015) [facility] Colonoscopy no interpretation , abstracted Anatomical Region Laterality Modality Other Historical Provider HEALTH MAINTENANCE Final Result * Hepatitis C Screening (04/04/2013) [facility] Hepatitis C Screening abstracted us Historical Provider HEALTH MAINTENANCE Final Result from Last 3 Months or Most Recently Relevant to Health Maintenance Insurance MEDICARE [facility] Care Teams Director Of Student Financial Services Relationship Specialty Start Date End Date Akin Aponte MD [facility] [place] [id number] PCP - General 04/03/22
== END 2025-03-30 16:00 | disposition home or self-care (01) ==
LOC: HO.HMGAL 16:00
PROVIDERS: PCP Internal Medicine; Visit Provider Registered Nurse Emergency
DX: J30.89 Other allergic rhinitis (principal)
CPT/HCPCS: 95117; 95165